=== PATIENT | male | born 2000 | race Asian ===

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

== ENCOUNTER 2022-03-09 18:52 | Emergency (ER) | payer OTHER ==
[2022-03-09 19:14] VITALS: BP 135/60; PULSE 68; TEMP 98.9; BMI 23.0
[2022-03-09] MEDS ORDERED: ACETAMINOPHEN 325 MG TABLET (FP) PO ONE (19:35)
[2022-03-09] MEDS ORDERED: SODIUM CHLORIDE 0.9% 500 ML INFUS.BAG IV ONE (19:35)
[2022-03-09] MEDS ORDERED: FAMOTIDINE 20 MG TABLET PO ONE (19:35)
[2022-03-09] MEDS ORDERED: ACETAMINOPHEN 1000 MG/100 ML BAG IVPB ONE (19:37)
[2022-03-09] MEDS ORDERED: FAMOTIDINE 20 MG/50 ML IVPB 20 MG/50 ML MG IVPB ONE (19:37)
[2022-03-09] MEDS ORDERED: FAMOTIDINE 10 MG/ML VIAL IVPB ONE (19:38)
[2022-03-09] MEDS ORDERED: MAG HYDROX/AL HYDROX/SIMETH 30 ML UNIT-DOSE CUP PO ONE (19:38)
[2022-03-09] MEDS ORDERED: ACETAMINOPHEN INJECTION 100 ML IVPB ONE (19:38)
[2022-03-09] MEDS ORDERED: ONDANSETRON 4 MG/2 ML VIAL IVPUSH ONE (19:40)
[2022-03-09] MEDS ORDERED: MAG HYDROX/AL HYDROX/SIMETH 30 ML UNIT-DOSE CUP ONE (19:41)
[2022-03-09] MEDS ORDERED: ONDANSETRON 4 MG/2 ML VIAL ONE (19:42)
[2022-03-09 20:34] LABS: BASO % 0.1 % (0-2.0); EOS % 0.2 % (0-4.5); HEMATOCRIT 40.6 % (35.4-49); HEMOGLOBIN 13.4 GM/dL (11.7-16.9); LYMPH % 9.2 % (8-40); MCH 26.3 pg (25.7-33.7); MEAN CELL VOLUME 79.6 fl (80-96); MONO % 6.1 % (3.8-10.2); NEUT % 84.4 % (42.8-82.8); PLATELET COUNT 278 10^3/uL (134-434); RDW 15.7 % (11.9-15.9); WHITE BLOOD COUNT 9.1 K/mm3 (4.0-10.0)
[2022-03-09 20:54] LABS: CALCIUM 8.7 mg/dL (8.5-10.1)
[2022-03-09 20:55] LABS: ALBUMIN 4.4 g/dl (3.4-5.0)
[2022-03-09 20:58] LABS: CREATININE 1.1 mg/dL (0.55-1.3)
[2022-03-09 20:59] LABS: TOT PROT 7.4 g/dl (6.4-8.2)
[2022-03-09 21:00] LABS: BILIRUBIN,TOTAL 0.5 mg/dL (0.2-1)
[2022-03-09] MEDS ORDERED: AMPICILLIN NA/SULBACTAM NA 1.5 GM in SODIUM CHLORIDE 100 ML IVPB ONE (22:32)
[2022-03-09 22:39] LABS: URINE APPEARANCE CLEAR; URINE BILIRUBIN NEGATIVE (NEGATIVE); URINE COLOR YELLOW; URINE GLUCOSE (UA) NEGATIVE (NEGATIVE); URINE KETONE 2+ (NEGATIVE); URINE LEUK ESTERASE NEGATIVE (NEGATIVE); URINE NITRITE NEGATIVE (NEGATIVE); URINE PROTEIN TRACE (NEGATIVE); URINE UROBILINOGEN 0.2 mg/dL (0.2-1.0)
== END 2022-03-10 00:33 | disposition home or self-care (01) ==
LOC: JER 18:52
PROC: 3E033GC Introduction of Other Therapeutic Substance into Peripheral Vein, Percutaneous Approach (ICD-10-PCS; principal; 2022-03-09)
DX: K52.9 Noninfective gastroenteritis and colitis, unspecified (principal)
CPT/HCPCS: 36415; 71046-TC-FY; 80053; 81003; 83690; 85025; 87086; 99284-25

== ENCOUNTER 2023-03-25 04:09 | Day surgery (SDC) | payer OTHER ==
[2023-03-23 14:08] VITALS: BMI 24.4
[~2023-03-25 04:09] MED LIST: BUPIVACAINE HCL/PF 0.25% (2.5MG/ML) 10 ML VIAL IJ ONE
[2023-03-25] MEDS ORDERED: MIDAZOLAM HCL 2 MG/2 ML SINGLE DOSE VIAL ONE (15:42)
[2023-03-25] MEDS ORDERED: PROPOFOL 20 ML ONE ×2 (15:42→16:01)
[2023-03-25] MEDS ORDERED: KETOROLAC TROMETHAMINE 30 MG/1 ML VIAL ONE (16:01)
[2023-03-25] MEDS ORDERED: ONDANSETRON 4 MG/2 ML VIAL ONE (16:01)
[2023-03-25] MEDS ORDERED: DEXAMETHASONE SOD PHOSPHATE 4 MG/1 ML VIAL ONE (16:01)
[2023-03-25] MEDS ORDERED: BUPIVACAINE HCL/PF 0.25% (2.5MG/ML) 10 ML VIAL IJ ONE (16:08)
[2023-03-25] MEDS ORDERED: LIDOCAINE 1%/EPI 1:100000 (50 ML MULTI DOSE VIAL) INF ONE ×2 (16:08)
[2023-03-25 17:05] VITALS: RESP 16
[2023-03-25 17:53] VITALS: BP 139/57; PULSE 70; TEMP 98.3
== END 2023-03-25 17:40 | disposition home or self-care (01) ==
LOC: JASU-SURG 04:09
PROVIDERS: ATTEND Surgery Surgical Oncology
PROC: 0HBT0ZZ Excision of Right Breast, Open Approach (ICD-10-PCS; principal; 2023-03-25 15:00)
DX: N62 Hypertrophy of breast (principal)
CPT/HCPCS: 88307-TC

== ENCOUNTER 2023-04-30 03:46 | Day surgery (SDC) | payer OTHER ==
[2023-04-29 13:59] VITALS: BMI 23.1
[2023-04-30 07:02] VITALS: RESP 20
[2023-04-30] MEDS ORDERED: BUPIVACAINE HCL/PF 0.5% (5MG/ML) 10 ML VIAL ONE (07:18)
[2023-04-30] MEDS ORDERED: LIDOCAINE HCL 1%, 10 MG/ML (10ML VIAL) MDV ONE (07:18)
[2023-04-30] MEDS ORDERED: MIDAZOLAM HCL 2 MG/2 ML SINGLE DOSE VIAL ONE (07:25)
[2023-04-30] MEDS ORDERED: PROPOFOL 40 ML ONE (07:25)
[2023-04-30] MEDS ORDERED: ceFAZolin SODIUM 1 GM VIAL IVPB ONE (08:18)
[2023-04-30] MEDS ORDERED: BUPIVACAINE HCL/PF 0.5% (5MG/ML) 10 ML VIAL IJ ONE (08:27)
[2023-04-30] MEDS ORDERED: PROPOFOL 20 ML ONE (08:29)
[2023-04-30 10:11] VITALS: BP 119/64
[2023-04-30 10:33] VITALS: PULSE 62; TEMP 98.7
== END 2023-04-30 09:45 | disposition home or self-care (01) ==
LOC: JASU-SURG 03:46
PROVIDERS: ATTEND Surgery
PROC: 0JBD0ZZ Excision of Right Upper Arm Subcutaneous Tissue and Fascia, Open Approach (ICD-10-PCS; principal; 2023-04-30 08:00)
DX: D17.21 Benign lipomatous neoplasm of skin and subcutaneous tissue of right arm (principal)
CPT/HCPCS: 88304-TC